=== PATIENT | female | born 1990 | race Caucasian/White ===

== ENCOUNTER 2016-04-14 06:45 | Inpatient (IN) | payer OTHER ==
[~2016-04-14] VITALS: Ht 160 cm; Wt 95.4 kg
[~2016-04-14 06:45] MED LIST: PRENAT PO
[2016-04-14] MEDS ORDERED: LACTATED RINGER'S 1,000 ML IV PRN (07:30)
[2016-04-14] MEDS ORDERED: BUTORPHANOL 2 MG INJ IV PRN (07:30)
[2016-04-14] MEDS ORDERED: OXYTOCIN 30 UNITS/LR 500 ML IV SCH ×3 (07:30)
[2016-04-14] MEDS ORDERED: OXYTOCIN 30 UNITS/LR 500 ML IV PRN ×2 (07:30→21:00)
[2016-04-14] MEDS ORDERED: METHYLERGONOVINE 0.2 MG INJ IM PRN ×2 (07:30→21:00)
[2016-04-14] MEDS ORDERED: MISOPROSTOL 200 MCG TAB PR PRN ×2 (07:30→21:00)
[2016-04-14] MEDS ORDERED: CARBOPROST 250 MCG INJ IM PRN ×2 (07:30→21:00)
[2016-04-14] MEDS ORDERED: LIDOCAINE 1% (MPF) 30 ML INJ INJ PRN (07:30)
[2016-04-14 07:52] VITALS: BP 118/79; PULSE 76; RESP 18
--- NOTE | 2016-04-14 08:16 | RADRPT ---
PROCEDURE: US OB. CLINICAL INDICATION: Size and dates TECHNIQUE: Multiple sonographic images of the pelvis and gravid uterus were obtained. The images were reviewed on a PACS workstation. COMPARISON: 12/27/2015 FINDINGS: There is a single viable intrauterine gestation. Cardiac activity is present with 137 beats per min [place]. There is a vertex presentation. The placenta is posterior. There is no evidence for an abruption or placenta previa. Measurements were made in order to determine age. The results are as follows: BPD =9.3 cm HC =33.5 cm AC =34.2 cm FL =7.1 cm Estimated gestational age of approximately 37 weeks and 4 days based on ultrasound measurements. Clinical age: 39 weeks and 5 days. The estimated date of delivery is 05/01/16, based on ultrasound measurements. The EFW = 3260 g, 24.8%, based on LMP age. RPTAT: AA IMPRESSION: Single viable intrauterine gestation of approximately 37 weeks and 4 days based on ultrasound measu rements. .Harvey Davis MD, Date Time Electronically viewed and signed by .Harvey Davis MD, on 04/14/2016 08:16 .S/
[2016-04-14] MEDS: LACTATED RINGER'S 1,000 ML IV SCH ×2 (10:49→18:55)
[2016-04-14 11:07] LABS: BASOPHILS % 0.2 % (0.0-2.0); EOSINOPHILS # 0.1 10^3/ul (0.0-0.5); EOSINOPHILS % 1.5 % (0.0-7.0); HEMATOCRIT 39.4 % (37.0-47.0); HEMOGLOBIN 13.4 g/dl (12.0-16.0); LYMPHOCYTES # 1.8 10^3/ul (0.8-2.9); LYMPHOCYTES % 20.1 % (15.0-51.0); MEAN CORPUSCULAR HGB CONC 34.1 g/dl (32.0-37.0); MEAN CORPUSCULAR VOLUME 93.9 fl (82.0-101.0); MONOCYTE # 0.7 10^3/ul (0.3-0.9); MONOCYTES % 7.7 % (0.0-11.0); NEUTROPHIL # 6.2 10^3/ul (1.6-7.5); NEUTROPHILS % 70.5 % (39.0-77.0); PLATELET COUNT 189 10^3/UL (140-440); RED BLOOD COUNT 4.19 10^6/ul (4.20-5.40); RED CELL DISTRIBUTION WIDTH 13.7 % (11.5-14.5); UNCORRECTED WBC 8.8 10^3/ul (4.8-10.8); WHITE BLOOD COUNT 8.8 10^3/ul (4.8-10.8)
[2016-04-14 11:11] LABS: CONDITION 1
[2016-04-14 11:18] LABS: INR 0.89; PT RATIO 0.9
[2016-04-14 11:19] LABS: PARTIAL THROMBOPLASTIN TIME 27.8 Sec (25.0-35.0)
--- NOTE | 2016-04-14 16:43 | HP ---
Date/Time of Note Date/Time of Note DATE: 04/14/16 TIME: 16:42 OB - History Hx of Present Free Text/Dictation AT 39 WKS W/ SROM Care: Good Care Ultrasounds: Normal mid trimester US Obstetrical Complications: None Medical Complications: None Past Family/Social History * Past Medical, Surgical, Family and Obstetric Histories reviewed from chart. OB Admission Exam Vital Signs Vital Signs Vital Signs Date Time Temp Pulse Resp B/P Pulse Ox O2 Delivery O2 Flow Rate FiO2 04/14/16 07:52 98.1 76 18 118/79 Room Air Physical Exam HEENT: WNL Heart: Rhythm Normal Lungs: Clear, Equal Abdomen: WNL Extremities: Normal Reflexes: Normal Cervical Dilatation: 1cm Effacement: 0% Station: Ballotable Membranes: Ruptured Amniotic Fluid: Clear Heart Rate: 130's Accelerations: Accelerations Present Decelerations: No Decelerations Last 72 hours Lab Results CBC & BMP 04/14/16 10:45 OB Assessment/Plan Reason for admission: rupture of membranes Plan: Induction Induction Method: per Pitocin Protocol JAYLIN DAVIS MD Apr 14, 2016 16:43
[2016-04-14] MEDS ORDERED: AMPICILLIN 2 GM/NS (PMX) 100 ML IV ONE (17:00)
[2016-04-14] MEDS ORDERED: AMPICILLIN 2 GM/NS (PMX) 100 ML ONE (17:06)
--- NOTE | 2016-04-14 20:32 | LDN ---
Date/Time of Note Date/Time of Note DATE: 04/14/16 TIME: 20:20 Delivery Summary of a viable baby boy weighing 3430 grams or 7# 9oz, 20" long, and with Apgars of 9/9. Placenta Delivered: Spontaneously Meconium: none Perineum intact?: No Perineal laceration: 2 Perineal laceration repair: Second degree perineal laceration and multiple bilateral vaginal and labial laceration all repaired with 2-0 chromic. Anesthesia type: Local Estimated blood loss: 250 Sponge & Needle done & correct: Yes All needle counts correct: Yes Any foreign bodies felt in the: No (vagina) Problems: Infant Delivery Information Sex Infant Sex: male Apgars 1 Minute: 9 5 Minute: 9 Suctioning Nose & mouth suctioned at berto: No Delee suction performed: No Umbilical Cord Umbilical cord with: 3 Vessels Cord presentations: no nuchal cord Cord Blood was obtained: Yes Mother & Baby Disposition Disposition Mom & Baby to Maternity; Good: Yes Baby to NICU: No JORDAN SOLIS MD Apr 14, 2016 20:30
--- NOTE | 2016-04-14 20:34 | DELSUM ---
Delivery Summary A-C Datetime Report Generated by CPN: 04/14/2016 20:33 DELIVERY PERSONNEL Echocardiograph Technician: Castillo, Akila MATERNAL INFORMATION Delivery Anesthesia: Local Medications in Delivery: 500 ML 30 UNIT PITOCIN Estimated Blood Loss (ml): 250 Placenta Cultured: No Maternal Complications: PROM LABOR SUMMARY EDC: 04/17/2016 00:00 No. Babies in Womb: 1 Attempted: No Labor Anesthesia: None LABOR INFORMATION Reason for Induction: PROM Onset of Labor: 04/14/2016 12:11 Complete Dilatation: 04/14/2016 19:06 Oxytocin: Induction Group B Beta Strep: Negative Group B Beta Strep: Not Done Antibiotics # of Doses: 1 Antibiotics Time of Last Dose: 1510 Steroids Given: None Reason Steroids Not Administered: Not Applicable MEMBRANES Membranes Rupture Method: Spontaneous Rupture of Membranes: 04/14/2016 04:58 Amniotic Fluid Color: Clear Amniotic Fluid Amount: Moderate (Annotations: PER PT) Amniotic Fluid Odor: None VAGINAL DELIVERY Episiotomy: None Laceration Extension: Second Degree Laceration Type: Perineal Laceration Repair: Yes Initial Vag Sponge Count: 20 Final Vag Sponge Count: 20 Initial Vag Sharps Count: 1 Final Vag Sharps Count: 4 Sponge Count Correct: Yes Sharps Count Correct: Yes BABY A INFORMATION Delivery Date/Time: 04/14/2016 19:34 Method of Delivery: Vaginal Born in Route : No : N/A Forceps: N/A Vacuum Extraction: N/A Shoulder Dystocia : N/A SHOULDER DYSTOCIA BABY A Infant Delivery Date/Time: 04/14/2016 19:34 PRESENTATION/POSITION BABY A Presentation: Cephalic Presentation: Cephalic Presentation: Cephalic Cephalic Presentation: Vertex Breech Presentation: N/A PLACENTA INFORMATION BABY A Placenta Delivery Time : 04/14/2016 19:42 Placenta Method of Delivery: Spontaneous Placenta Status: Delivered SCORES BABY A Heart Rate 1 min: >100 bpm Resp Effort 1 min: Good Cry Reflex Irritability 1 min: Cough/Sneeze/Pulls Away Muscle Tone 1 min: Active Motion Color 1 min: Body Declo, Extremit Blue Resuscitation Effort 1 min: Tactile Stimulation Heart Rate 5 min: >100 bpm Resp Effort 5 min: Good Cry Reflex Irritability 5 min: Cough/Sneeze/Pulls Away Muscle Tone 5 min: Active Motion Color 5 min: Body Declo, Extremit Blue Resuscitation Effort 5 min: Tactile Stimulation INFANT INFORMATION BABY A Gestational Age at Delivery: 39.4 Outcome : Liveborn Condition : Stable Sex: Male IDENTIFICATION/MEDS BABY A ID Band Number: [id number] ID Band Location: Right Leg; Left Arm Sensor Applied: Yes Sensor Number: [id number] Sensor Location : Cord Clamp Vitamin K Given : Not Given Erythromycin Given: Not Given WEIGHT/LENGTH BABY A Infant Birthweight (gm): 3430 Infant Length (in): 20.00 CORD INFORMATION BABY A No. Cord Vessels: 3 Nuchal Cord : N/A Cord Blood Taken: Yes Infant Suction: Mouth; Nose ASSESSMENT BABY A Complications: None Physical Findings at Delivery: Within Normal Limits Infant Respirations: Appears Normal Terminal Manager/ALS Called : No Infant Care By: Vini HERNANDEZ Transferred To: Remains with Mother
[2016-04-14] MEDS: LACTATED RINGER'S 1,000 ML IV* SCH (20:48)
[2016-04-14] MEDS ORDERED: AMPICILLIN 1 GM/NS (PMX) 50 ML IV SCH (21:00)
[2016-04-14] MEDS ORDERED: WITCH HAZEL/GLYCERIN PAD PR PRN (21:00)
[2016-04-14] MEDS ORDERED: BENZOCAINE 20% 56 ML SPRAY TOP PRN (21:00)
[2016-04-14] MEDS ORDERED: LANOLIN 7 GM TUBE TOP PRN (21:00)
[2016-04-14] MEDS: IBUPROFEN 600 MG TAB PO SCH (21:02)
[2016-04-14 22:30] VITALS: BP 132/74; PULSE 91; RESP 20
[2016-04-15] MEDS: IBUPROFEN 600 MG TAB PO SCH ×4 (03:06→21:06)
[2016-04-15] MEDS: LACTATED RINGER'S 1,000 ML IV* SCH ×3 (04:32→20:32)
[2016-04-15 04:47] VITALS: BP 128/65; PULSE 75; RESP 20
[2016-04-15 07:35] VITALS: BP 116/70; PULSE 83; RESP 16
[2016-04-15 07:44] LABS: BASOPHILS % 0.2 % (0.0-2.0); EOSINOPHILS % 0.2 % (0.0-7.0); HEMATOCRIT 32.5 % (37.0-47.0); HEMOGLOBIN 11.3 g/dl (12.0-16.0); LYMPHOCYTES # 2.2 10^3/ul (0.8-2.9); LYMPHOCYTES % 16.9 % (15.0-51.0); MEAN CORPUSCULAR HEMOGLOBIN 32.8 pg (29.0-33.0); MEAN CORPUSCULAR HGB CONC 34.7 g/dl (32.0-37.0); MEAN CORPUSCULAR VOLUME 94.6 fl (82.0-101.0); MEAN PLATELET VOLUME 8.6 fl (7.4-10.4); MONOCYTE # 1.1 10^3/ul (0.3-0.9); MONOCYTES % 8.6 % (0.0-11.0); NEUTROPHIL # 9.4 10^3/ul (1.6-7.5); NEUTROPHILS % 74.1 % (39.0-77.0); PLATELET COUNT 179 10^3/UL (140-440); RED BLOOD COUNT 3.44 10^6/ul (4.20-5.40); RED CELL DISTRIBUTION WIDTH 13.9 % (11.5-14.5); UNCORRECTED WBC 12.7 10^3/ul (4.8-10.8); WHITE BLOOD COUNT 12.7 10^3/ul (4.8-10.8)
[2016-04-15 07:51] LABS: CONDITION 1
[2016-04-15 11:55] VITALS: BP 121/64; PULSE 98; RESP 16
--- NOTE | 2016-04-15 15:17 | PN ---
Date/Time of Note Date/Time of Note DATE: 04/15/16 TIME: 15:14 OB Subjective Subjective Subjective Denies any complaint. Vaginal bleeding in the amount of menses. Ambulating. Breast-feeding. Denies any depressive symptoms. Denies any leg pain. Denies any fever or chills. OB Objective Objective Objective General appearance: Alert and oriented 4 he is not in any acute distress. Abdomen: Soft, fundal height at the level of umbilicus. No fundal tenderness. No abdominal tenderness. No rebound tenderness no guarding no rigidity. Breasts: No evidence of breast engorgement, mastitis or fissure. Extremities: No calf tenderness no click 1+ bilateral symmetric edema. No cords palpable, negative Homans sign. Hematology - 72 Hrs Test 04/14/16 10:45 04/15/16 07:30 Basophils # 0.010^3/ul (0.0-0.1) 0.010^3/ul (0.0-0.1) Basophils % 0.2% (0.0-2.0) 0.2% (0.0-2.0) Eosinophils # 0.110^3/ul (0.0-0.5) 0.010^3/ul (0.0-0.5) Eosinophils % 1.5% (0.0-7.0) 0.2% (0.0-7.0) Hematocrit 39.4% (37.0-47.0) 32.5% (37.0-47.0) L Hemoglobin 13.4g/dl (12.0-16.0) 11.3g/dl (12.0-16.0) L Lymphocytes # 1.810^3/ul (0.8-2.9) 2.210^3/ul (0.8-2.9) Lymphocytes % 20.1% (15.0-51.0) 16.9% (15.0-51.0) Mean Corpuscular Hemoglobin 32.0pg (29.0-33.0) 32.8pg (29.0-33.0) Mean Corpuscular Hemoglobin Concent 34.1g/dl (32.0-37.0) 34.7g/dl (32.0-37.0) Mean Corpuscular Volume 93.9fl (82.0-101.0) 94.6fl (82.0-101.0) Mean Platelet Volume 9.0fl (7.4-10.4) 8.6fl (7.4-10.4) Monocytes # 0.710^3/ul (0.3-0.9) 1.110^3/ul (0.3-0.9) H Monocytes % 7.7% (0.0-11.0) 8.6% (0.0-11.0) Neutrophils # 6.210^3/ul (1.6-7.5) 9.410^3/ul (1.6-7.5) H Neutrophils % 70.5% (39.0-77.0) 74.1% (39.0-77.0) Nucleated Red Blood Cells # 0.010^3/ul (0.0-0.0) 0.010^3/ul (0.0-0.0) Nucleated Red Blood Cells % 0.0/100WBC (0.0-0.0) 0.0/100WBC (0.0-0.0) Platelet Count 21416^3/UL (140-440) 78956^3/UL (140-440) Red Blood Count 4.1910^6/ul (4.20-5.40) L 3.4410^6/ul (4.20-5.40) L Red Cell Distribution Width 13.7% (11.5-14.5) 13.9% (11.5-14.5) White Blood Count 8.810^3/ul (4.8-10.8) 12.710^3/ul (4.8-10.8) #H OB Assessment/Plan Other Assessment: Status post , day #1 Status post SROM, mild leukocytosis, related to status. no evidence of endometritis or chorioamnionitis prior to delivery Mild anemia. . Doing well. Normal Plan: Expectant Management Other plan: Routine care Anticipate DC home tomorrow CHITO MELTON MD Apr 15, 2016 15:17
[2016-04-15 15:45] VITALS: BP 119/73; PULSE 87; RESP 18
[2016-04-15 20:30] VITALS: BP 110/75; PULSE 87; RESP 18
[2016-04-16] MEDS: IBUPROFEN 600 MG TAB PO SCH ×3 (03:06→18:30)
[2016-04-16] MEDS: LACTATED RINGER'S 1,000 ML IV* SCH (03:54)
[2016-04-16 04:00] VITALS: BP 100/59; PULSE 73; RESP 18
[2016-04-16 08:55] VITALS: BP 106/61; PULSE 85; RESP 18
[2016-04-16] MEDS ORDERED: DIPHTH/TET/ACEL PERTUSS (ADULT) 0.5 ML VIAL IM* ONE (09:00)
[2016-04-16 16:09] VITALS: BP 109/69; PULSE 95; RESP 18
[2016-04-16 20:00] VITALS: BP 110/72; PULSE 92; RESP 18
== END 2016-04-16 22:40 | disposition home or self-care (01) | DRG 775 ==
LOC: L-D 06:45 → OBT 06:45 → L-D 07:04 → OBT 07:04 → L-D 13:23 → PP1 22:13
PROVIDERS: ADMIT Obstetrics & Gynecology; ATTEND Obstetrics & Gynecology
PROC: 10E0XZZ Delivery of Products of Conception, External Approach (ICD-10-PCS; principal; 2016-04-14)
PROC: 0KQM0ZZ Repair Perineum Muscle, Open Approach (ICD-10-PCS; 2016-04-14)
DX: O70.1 Second degree perineal laceration during delivery (principal); Z37.0 Single live birth; O99.13 Other diseases of the blood and blood-forming organs and certain disorders involving the immune mechanism complicating the puerperium; O90.81 Anemia of the puerperium; D72.829 Elevated white blood cell count, unspecified; Z3A.39 39 weeks gestation of pregnancy
CPT/HCPCS: 76815; 85025; 85610; 85730; 86592; 86900; 86901; 87340; 90715; A4310; G0463; J0290; J2590; J7120

== ENCOUNTER 2016-11-25 11:40 | Emergency (ER) | payer OTHER ==
[~2016-11-25] VITALS: Ht 160 cm; Wt 89.5 kg
[2016-11-25 11:47] VITALS: Ht 160 cm; Wt 89.5 kg
[2016-11-25] MEDS ORDERED: ACETAMINOPHEN 325 MG TAB PO ONE (13:00)
[2016-11-25 13:26] LABS: BASOPHILS % 0.4 % (0.0-2.0); EOSINOPHILS # 0.1 10^3/ul (0.0-0.5); EOSINOPHILS % 0.8 % (0.0-7.0); HEMATOCRIT 39.5 % (37.0-47.0); HEMOGLOBIN 13.4 g/dl (12.0-16.0); LYMPHOCYTES # 2.3 10^3/ul (0.8-2.9); LYMPHOCYTES % 31.3 % (15.0-51.0); MEAN CORPUSCULAR HEMOGLOBIN 29.5 pg (29.0-33.0); MEAN CORPUSCULAR HGB CONC 33.9 g/dl (32.0-37.0); MEAN PLATELET VOLUME 10.3 fl (7.4-10.4); MONOCYTE # 0.4 10^3/ul (0.3-0.9); MONOCYTES % 6.1 % (0.0-11.0); NEUTROPHIL # 4.4 10^3/ul (1.6-7.5); PLATELET COUNT 276 10^3/UL (140-415); RED BLOOD COUNT 4.54 10^6/ul (4.20-5.40); RED CELL DISTRIBUTION WIDTH 12.7 % (11.5-14.5); WHITE BLOOD COUNT 7.3 10^3/ul (4.8-10.8)
[2016-11-25 13:49] LABS: INR 0.95; PROTIME 12.7 Sec (12.2-14.2)
[2016-11-25 13:50] LABS: PARTIAL THROMBOPLASTIN TIME 28.8 Sec (25.0-35.0)
[2016-11-25 13:50] LABS: ADD UMIC NO; UR ASCORBIC ACID NEGATIVE (NEGATIVE); UR BILIRUBIN (Dip) NEGATIVE (NEGATIVE); UR BLOOD (Dip) NEGATIVE (NEGATIVE); UR CLARITY CLEAR (CLEAR); UR COLOR YELLOW (YELLOW); UR GLUCOSE (Dip) NEGATIVE (NEGATIVE); UR KETONES (Dip) NEGATIVE (NEGATIVE); UR LEUKOCYTE ESTERASE (Dip) NEGATIVE Leu/ul (NEGATIVE); UR NITRITE (Dip) NEGATIVE (NEGATIVE); UR SPECIFIC GRAVITY (Dip) 1.026 (1.003-1.030); UR TOTAL PROTEIN (Dip) NEGATIVE (NEGATIVE); UR UROBILINOGEN (Dip) NEGATIVE (NEGATIVE)
[2016-11-25 13:52] LABS: ALBUMIN 4.6 g/dl (3.3-4.9); ALBUMIN/GLOBULIN RATIO 1.35; BILIRUBIN,INDIRECT 0.3 mg/dl (0-1.1); BILIRUBIN,TOTAL 0.3 mg/dl (0.2-1.3); CALCIUM 9.4 mg/dl (8.4-10.2); CREATININE 0.57 mg/dl (0.44-1.00); POTASSIUM 3.7 mmol/L (3.5-5.1)
--- NOTE | 2016-11-25 14:55 | RADRPT ---
PROCEDURE: CT Abdomen and Pelvis without contrast. CLINICAL INDICATION: Abdominal pain. TECHNIQUE: CT scan of the abdomen and pelvis without contrast was performed on a multidetector hig h-resolution CT scanner. The patient was scanned without intravenous contrast. Coronal and sagittal reformatted images were obtained from the axial source images. Images were reviewed on a high-resol [employer] PACS workstation. The total exam CTDI equals 20.4 mGy and the total exam DLP equals 1100.34 mG y-cm. One or the following dose reduction techniques were used: -Automated exposure control. -Adjustment of the mA and/or KV according to patient's size. -Use of iterative reconstruction technique. COMPARISON: None. FINDINGS: Lung Bases: Unremarkable. GI:. Unremarkable. Liver: There is a slight decrease in the overall attenuation of the liver suggesting very mild diffu se steatosis. Gallbladder: There is cholelithiasis without evidence of biliary tree dilatation. Pancreas: Unremarkable. Spleen: Unremarkablel Adrenals: Unremarkable. Kidneys: There is no evidence of urolithiasis or obstructive uropathy. Bladder: Unremarkable. Pelvic Organs: Unremarkable. Skeleton: Normal for age. Other: Shoddy bilateral inguinal lymph nodes. IMPRESSION: 1. Small ovoid fat density mass with surrounding stranding in the adjacent fat in the region of the sigmoid colon. This is suggestive of epiploic appendagitis. 2. Cholelithiasis without evidence of biliary tree dilatation. 3. Very subtle decrease in the overall attenuation of the liver suggesting mild hepatic steatosis. 4. Multiple small calcified sub hepatic lymph nodes. This is suggestive of an old inflammatory proc ess such as old healed granulomatous residua. 5. Normal-appearing vermiform appendix visualized. 6. No evidence of urolithiasis or obstructive uropathy. Note: A call report was made to Nickolas Oscar on 11/25/2016 2:48:05 PM. RPTAT: AACC Physician Antwon Date Time Electronically viewed and signed by Physician Antwon on 11/25/2016 14:53 /
[2016-11-25] MEDS ORDERED: RANI150T9 PO (15:17)
[2016-11-25] MEDS ORDERED: IBUP-1542 PO (15:17)
[2016-11-25 15:39] VITALS: BP 117/75; PULSE 72; RESP 16; TEMP 98.7
--- NOTE | 2016-11-27 04:07 | ERD ---
ER Documentation Chief Complaint Date/Time DATE: 11/27/16 TIME: 04:04 Chief Complaint abdominal pain x 4 days HPI This patient is a 26-year-old female presenting to the emergency department with complaints of right upper quadrant pain worse with walking, intermittently for the past 4 days. Associated symptoms include decreased appetite. The patient denies past abdominal surgeries, nausea, urinary symptoms, but she does state that she had some mild diarrhea. She believes her last menstrual cycle was approximately 8 days ago. She denies other symptoms currently. ROS All systems reviewed and are negative except as per history of present illness. Medications Home Meds Active Scripts Ranitidine Hcl* (Zantac*) 150 Mg Tablet, 150 MG PO BID Y for EPIGASTRIC PAIN, # 30 TAB Prov:NICKOLAS PISANO PA-C 11/25/16 Ibuprofen* (Motrin*) 600 Mg Tab, 600 MG PO Q6, #30 TAB Prov:NICKOLAS PISANO PA-C 11/25/16 Allergies Allergies: Coded Allergies: hydrocodone (Verified Allergy, Mild, NAUSEA, 04/14/16) PT. STATES SHE FEELS 'BAD' ON THE MED. SEVERE NAUSEA tramadol (Verified Allergy, Mild, NAUSEA, 04/14/16) PMhx/Soc Medical and Surgical Hx: pt denies Medical Hx, pt denies Surgical Hx Hx Miscellaneous Medical Probl: Yes (FOOT PAIN UNK ORIGIN ) Hx Alcohol Use: No Hx Substance Use: No Hx Tobacco Use: No Smoking Status: Never smoker Physical Exam Vitals Vital Signs Date Time Temp Pulse Resp B/P Pulse Ox O2 Delivery O2 Flow Rate FiO2 11/25/16 15:39 98.7 72 16 117/75 99 Room Air 11/25/16 11:47 98.2 93 18 129/63 98 Physical Exam Const: Obese female resting in no acute distress. Head: Atraumatic Eyes: Normal Conjunctiva ENT: Normal External Ears, Nose and Mouth. Neck: Full range of motion..~ No meningismus. Resp: Clear to auscultation bilaterally Cardio: Regular rate and rhythm, no murmurs Abd: Soft, no tenderness to palpation of the right upper quadrant, no rebound tenderness or guarding, no McBurney's point tenderness, non distended. Normal bowel sounds Skin: No petechiae or rashes Back: No midline or flank tenderness Ext: No cyanosis, or edema Neur: Awake and alert Psych: Normal Mood and Affect Result Diagram: 11/25/16 1300 11/25/16 1300 Results 24 hrs Laboratory Tests Test 11/25/16 12:30 11/25/16 13:00 Urine Color YELLOW Urine Clarity CLEAR Urine pH 5.0 Urine Specific [place] 1.026 Urine Ketones NEGATIVEmg/dL Urine Nitrite NEGATIVEmg/dL Urine Bilirubin NEGATIVEmg/dL Urine Urobilinogen NEGATIVEmg/dL Urine Leukocyte Esterase NEGATIVELeu/ul Urine Hemoglobin NEGATIVEmg/dL Urine Glucose NEGATIVEmg/dL Urine Total Protein NEGATIVEmg/dl White Blood Count 7.310^3/ul Red Blood Count 4.5410^6/ul Hemoglobin 13.4g/dl Hematocrit 39.5% Mean Corpuscular Volume 87.0fl Mean Corpuscular Hemoglobin 29.5pg Mean Corpuscular Hemoglobin Concent 33.9g/dl Red Cell Distribution Width 12.7% Platelet Count 10061^3/UL Mean Platelet Volume 10.3fl Neutrophils % 61.0% Lymphocytes % 31.3% Monocytes % 6.1% Eosinophils % 0.8% Basophils % 0.4% Nucleated Red Blood Cells % 0.0/100WBC Neutrophils # 4.410^3/ul Lymphocytes # 2.310^3/ul Monocytes # 0.410^3/ul Eosinophils # 0.110^3/ul Basophils # 0.010^3/ul Nucleated Red Blood Cells # 0.010^3/ul Prothrombin Time 12.7Sec Prothrombin Time Ratio 1.0 INR International Normalized Ratio 0.95 Activated Partial Thromboplast Time 28.8Sec Sodium Level 141mmol/L Potassium Level 3.7mmol/L Chloride Level 108mmol/L Carbon Dioxide Level 22mmol/L Anion Gap 15 Blood Urea Nitrogen 11mg/dl Creatinine 0.57mg/dl Glucose Level 90mg/dl Calcium Level 9.4mg/dl Total Bilirubin 0.3mg/dl Direct Bilirubin 0.00mg/dl Indirect Bilirubin 0.3mg/dl Aspartate Amino Transf (AST/SGOT) 17IU/L Alanine Aminotransferase (ALT/SGPT) 26IU/L Alkaline Phosphatase 107IU/L Total Protein 8.0g/dl Albumin 4.6g/dl Globulin 3.40g/dl Albumin/Globulin Ratio 1.35 Lipase 69U/L Current Medications Medications (Trade) Dose Ordered Sig/Vamshi Route PRN Reason Start Time Stop Time Status Last Admin Dose Admin Acetaminophen (Tylenol Tab) 650 mg ONCE ONCE PO 11/25/16 13:00 11/25/16 13:02 DC 11/25/16 13:29 Procedures/MDM This patient is a 26-year-old female presenting to the emergency department with complaints of right upper quadrant pain. The patient is breast-feeding and declined pain medication in the department. CBC showed no signs of leukocytosis or anemia. Urinalysis showed no sign of infection or proteinuria. CT abdomen and pelvis without contrast did show epiploic appendage otitis, however no other significant acute abnormalities were noted. Was cholelithiasis which may be causing intermittent pain. No other life- threatening pathology or acute surgical abdomen findings were present. She was stable for discharge with a diagnosis of abdominal pain of unclear etiology. Given a prescription for the Profen. She is to have close follow-up with her primary care physician within 1-2 days. She is to return immediately for any new or worsening symptoms. PROCEDURE: CT Abdomen and Pelvis without contrast. CLINICAL INDICATION: Abdominal pain. TECHNIQUE: CT scan of the abdomen and pelvis without contrast was performed on a multidetector high-resolution CT scanner. The patient was scanned without intravenous contrast. Coronal and sagittal reformatted images were obtained from the axial source images. Images were reviewed on a high-resolution PACS workstation. The total exam CTDI equals 20.4 mGy and the total exam DLP equals 1100.34 mGy-cm. One or the following dose reduction techniques were used: -Automated exposure control. -Adjustment of the mA and/or KV according to patient's size. -Use of iterative reconstruction technique. COMPARISON: None. FINDINGS: Lung Bases: Unremarkable. GI:. Unremarkable. Liver: There is a slight decrease in the overall attenuation of the liver suggesting very mild diffuse steatosis. Gallbladder: There is cholelithiasis without evidence of biliary tree dilatation. Pancreas: Unremarkable. Spleen: Unremarkablel Adrenals: Unremarkable. Kidneys: There is no evidence of urolithiasis or obstructive uropathy. Bladder: Unremarkable. Pelvic Organs: Unremarkable. Skeleton: Normal for age. Other: Shoddy bilateral inguinal lymph nodes. IMPRESSION: 1. Small ovoid fat density mass with surrounding stranding in the adjacent fat in the region of the sigmoid colon. This is suggestive of epiploic appendagitis. 2. Cholelithiasis without evidence of biliary tree dilatation. 3. Very subtle decrease in the overall attenuation of the liver suggesting mild hepatic steatosis. 4. Multiple small calcified sub hepatic lymph nodes. This is suggestive of an old inflammatory process such as old healed granulomatous residua. 5. Normal-appearing vermiform appendix visualized. 6. No evidence of urolithiasis or obstructive uropathy. Note: A call report was made to Nickolas Oscar on 11/25/2016 2:48: 05 PM. RPTAT: AACC Physician Antwon Date Time Electronically viewed and signed by Sacha Clark Physician on 11/25/2016 14: 53 Departure Diagnosis: Primary Impression: Abdominal pain Abdominal location: unspecified location Qualified Code: R10.9 - Abdominal pain, unspecified abdominal location Condition: Fair Patient Instructions: Abdominal Pain, Unknown Cause, (Female), Gerd (Adult) Referrals: JOSE DE JESUS ABARCA (PCP) Additional Instructions: Follow up with your PCP within the next 1-3 days for a repeat evaluation. If you require a referral to a specialist, your Primary Care Provider may be able to provide this for you. In most patient cases, a referral is not required. If you have further questions regarding this matter, please ask your Primary Care Provider. Return the the emergency department immediately if symptoms worsen or change. If you have any questions regarding medications, ask your pharmacist or us before you leave. If any adverse reactions, occur while taking your medications, discontinue the treatment and return to the emergency department immediately. If any new or worsening symptoms, uncontrolled fevers, or other unexplained symptoms occur, return to the emergency department immediately. Take your medications as directed, and complete the entire course of treatment. NICKOLAS PISANO PA-C Nov 27, 2016 04:07
== END 2016-11-25 15:41 | disposition home or self-care (01) ==
LOC: FTE 11:40
DX: R10.11 Right upper quadrant pain (principal)
CPT/HCPCS: 74176; 80053; 81003; 83690; 85025; 85610; 85730; Z7502; Z7610

== ENCOUNTER 2017-06-23 12:33 | Emergency (ER) | END 2017-06-23 15:24 | disposition home or self-care (01) ==

== ENCOUNTER 2017-12-16 00:03 | Emergency (ER) | END 2017-12-16 04:55 | disposition home or self-care (01) ==

== ENCOUNTER 2018-03-10 09:33 | Emergency (ER) | payer OTHER ==
[~2018-03-10] VITALS: Ht 160 cm; Wt 96.8 kg
[~2018-03-10 09:33] MED LIST changes: +IBUP-1542 PO; +ONDA4TAB14 PO; -PRENAT PO
[2018-03-10 09:37] VITALS: BP 135/95; PULSE 107; RESP 19; Ht 160 cm; Wt 96.8 kg
[2018-03-10] MEDS ORDERED: AMOX500C2 PO (11:31)
[2018-03-10] MEDS ORDERED: CARB15DR50 BOTH EARS (11:42)
[2018-03-10] MEDS ORDERED: ERYT1OIN6 RIGHT EYE (11:44)
--- NOTE | 2018-03-10 13:51 | ERD ---
ER Documentation Chief Complaint Chief Complaint left ear pain x 3 days HPI 27-year-old female presents emergency department complaining of left ear pain for the past 3 days. Patient states that she has lymph node underneath her left ear that is painful. She rates it mild in severity. Denies any fevers, denies any drainage. Denies any medications ROS All systems reviewed and are negative except as per history of present illness. Medications Home Meds Active Scripts Erythromycin Base (Erythromycin) 1 Gm Oint...g., 1 APPLIC RIGHT EYE QID for 7 Days Prov:ELIZABETH GRAMAJO PA-C 03/10/18 Carbamide Peroxide* (Debrox*) 6.5% - 15 Ml Drops, 10 DROP BOTH EARS BID for 3 Days, BOTTLE Prov:ELIZABETH GRAMAJO PA-C 03/10/18 Amoxicillin* (Amoxicillin*) 500 Mg Cap, 500 MG PO TID for 10 Days, CAP Prov:ELIZABETH GRAMAJO PA-C 03/10/18 Ondansetron (Ondansetron Odt) 4 Mg Tab.rapdis, 4 MG PO Q6H PRN for NAUSEA AND/OR VOMITING, #10 TAB Prov:DIANA SMALL MD 12/16/17 Ibuprofen* (Motrin*) 600 Mg Tab, 600 MG PO Q6H PRN for PAIN AND OR ELEVATED TEMP, #20 TAB Prov:DIANA SMALL MD 12/16/17 Allergies Allergies: Coded Allergies: hydrocodone (Verified Allergy, Mild, NAUSEA, 12/16/17) PT. STATES SHE FEELS 'BAD' ON THE MED. SEVERE NAUSEA tramadol (Verified Allergy, Mild, NAUSEA, 12/16/17) PMhx/Soc Medical and Surgical Hx: pt denies Medical Hx, pt denies Surgical Hx History of Surgery: No Anesthesia Reaction: No Hx Neurological Disorder: No Hx Respiratory Disorders: No Hx Cardiac Disorders: No Hx Psychiatric Problems: No Hx Miscellaneous Medical Probl: Yes (FOOT PAIN UNK ORIGIN ) Hx Alcohol Use: No Hx Substance Use: No Hx Tobacco Use: No Smoking Status: Never smoker Physical Exam Vitals Vital Signs Date Temp Pulse Resp B/P (MAP) Pulse Ox O2 O2 Flow FiO2 Time Delivery Rate 03/10/18 98.0 107 19 135/95 96 09:37 (108) Physical Exam Const: No acute distress Head: Atraumatic Eyes: Normal Conjunctiva ENT: Bilateral cerumen impaction, Nose and Mouth. Preauricular lymph node Neck: Full range of motion. No meningismus. Resp: Clear to auscultation bilaterally Cardio: Regular rate and rhythm, no murmurs Abd: Soft, non tender, non distended. Normal bowel sounds Skin: No petechiae or rashes Back: No midline or flank tenderness Ext: No cyanosis, or edema Neur: Awake and alert Psych: Normal Mood and Affect Procedures/MDM 27-year-old female presents emerged from complaining of left ear pain for the past 3 days, on examination patient has bilateral cerumen impaction with a small lymph node in the preauricular region. Patient will be treated for possible lymphadenitis with amoxicillin and given instructions to follow-up with her primary care physician. I have given a prescription for Debrox for the cerumen impaction to apply when she feels better. Return precautions were given she understands agrees this plan Departure Diagnosis: Primary Impression: Left ear pain Additional Impression: Lymphadenopathy Condition: Stable Patient Instructions: Lymphangitis Additional Instructions: FOLLOW UP WITH YOUR PRIMARY CARE PHYSICIAN TOMORROW.Return to this facility if you are not improving as expected. Take all medicines as directed. Return to this facility if you are not improving as expected. ELIZABETH GRAMAJO PA-C Mar 10, 2018 13:51
== END 2018-03-10 11:37 | disposition home or self-care (01) ==
LOC: FTE 09:33
DX: H92.02 Otalgia, left ear (principal); R59.1 Generalized enlarged lymph nodes
CPT/HCPCS: 99283

== ENCOUNTER 2018-08-21 08:21 | Emergency (ER) | payer OTHER ==
[~2018-08-21] VITALS: Ht 160 cm; Wt 9.0 kg
[~2018-08-21 08:21] MED LIST changes: +AMOX500C2 PO; +CARB15DR50 BOTH EARS; +ERYT1OIN6 RIGHT EYE
[2018-08-21 08:24] VITALS: BP 128/68; PULSE 88; RESP 18; Ht 160 cm; Wt 9.0 kg
[2018-08-21] MEDS ORDERED: CEPH-443 PO (10:58)
[2018-08-21] MEDS ORDERED: IBUP-1542 PO (10:58)
--- NOTE | 2018-08-21 11:02 | ERD ---
ER Documentation Chief Complaint Chief Complaint leg/calf pain/swelling x5 days "may be blood clot" HPI 28-year-old female presents to the ED with right calf pain x5 days. She reports that she has concerned that this may be a blood clot. She denies any history of blood clots previously and denies any family history of blood clots. She reports that her calf pain is pulsating and cramp like. She reports the pain 5 out of 10 intensity and states that it does not radiate anywhere. She states the pain is worse with activity and better with rest. She denies any shortness of breath or signs of breathing difficulties. She does report that she started control at the beginning of this month. She has not taken any medication for her calf pain. ROS All systems reviewed and are negative except as per history of present illness. Medications Home Meds Active Scripts Ibuprofen* (Motrin*) 600 Mg Tab, 600 MG PO Q6H PRN for PAIN AND OR ELEVATED TEMP, #30 TAB Prov:BRANDI GAYTAN PA-C 08/21/18 Cephalexin* (Keflex*) 500 Mg Capsule, 500 MG PO BID for 7 Days, CAP Prov:BRANDI GAYTAN PA-C 08/21/18 Erythromycin Base (Erythromycin) 1 Gm Oint...g., 1 APPLIC RIGHT EYE QID for 7 Days Prov:ELIZABETH GRAMAJO PA-C 03/10/18 Carbamide Peroxide* (Debrox*) 6.5% - 15 Ml Drops, 10 DROP BOTH EARS BID for 3 Days, BOTTLE Prov:ELIZABETH GRAMAJO PA-C 03/10/18 Amoxicillin* (Amoxicillin*) 500 Mg Cap, 500 MG PO TID for 10 Days, CAP Prov:EILZABETH GRAMAJO PA-C 03/10/18 Ondansetron (Ondansetron Odt) 4 Mg Tab.rapdis, 4 MG PO Q6H PRN for NAUSEA AND/OR VOMITING, #10 TAB Prov:DIANA SMALL MD 12/16/17 Ibuprofen* (Motrin*) 600 Mg Tab, 600 MG PO Q6H PRN for PAIN AND OR ELEVATED TEMP, #20 TAB Prov:DIANA SMALL MD 12/16/17 Allergies Allergies: Coded Allergies: hydrocodone (Verified Allergy, Mild, NAUSEA, 12/16/17) PT. STATES SHE FEELS 'BAD' ON THE MED. SEVERE NAUSEA tramadol (Verified Allergy, Mild, NAUSEA, 12/16/17) PMhx/Soc Medical and Surgical Hx: pt denies Medical Hx, pt denies Surgical Hx History of Surgery: No Anesthesia Reaction: No Hx Neurological Disorder: No Hx Respiratory Disorders: No Hx Cardiac Disorders: No Hx Psychiatric Problems: No Hx Miscellaneous Medical Probl: Yes (FOOT PAIN UNK ORIGIN ) Hx Alcohol Use: No Hx Substance Use: No Hx Tobacco Use: No Smoking Status: Never smoker FmHx Family History: No diabetes Physical Exam Vitals Vital Signs Date Temp Pulse Resp B/P (MAP) Pulse Ox O2 O2 Flow FiO2 Time Delivery Rate 08/21/18 99.1 88 18 128/68 99 08:24 (88) Physical Exam Const: No acute distress Head: Atraumatic Eyes: Normal Conjunctiva ENT: Normal External Ears, Nose and Mouth. Neck: Full range of motion. Resp: Clear to auscultation bilaterally Cardio: Regular rate and rhythm Abd: Soft, non tender, non distended. Skin: No petechiae or rashes Back: Slight tenderness to the right lower back Ext: Right calf: Tenderness on pressing up and down the calf. No significant swelling noted. No erythema. Negative Homans sign Neur: Awake and alert Psych: Normal Mood and Affect Results 24 hrs Laboratory Tests Test 08/21/18 10:04 08/21/18 10:13 POC Beta HCG, Qualitative NEGATIVE Bedside Urine pH (LAB) 6.0 Bedside Urine Protein (LAB) 2+ Bedside Urine Glucose (UA) Negative Bedside Urine Ketones (LAB) Negative Bedside Urine Blood 3+ Bedside Urine Nitrite (LAB) Negative Bedside Urine Leukocyte Esterase (L 1+ Procedures/MDM ED COURSE: The patient was stable throughout ED course. I kept the patient informed of laboratory and diagnostic imaging results throughout the ED course. DIAGNOSTIC IMAGING: Read by radiologist. PROCEDURE: US Lower extremity Venous. CLINICAL INDICATION: Right leg edema TECHNIQUE: Multiple sonographic images of the right lower extremity deep venous system was obtained utilizing grayscale, color-flow, compressive sono graphy and doppler imaging with augmentation. The images were reviewed on a PACS workstation. COMPARISON: None. FINDINGS: There is normal compressibility and flow within the right common femoral, femoral, calf and popliteal veins. IMPRESSION: No sonographic evidence for deep venous thrombosis. RPTAT: HMPE Physician Meron Date Time Electronically viewed and signed by Svetlana Gray Physician on 08/21/2018 10:44 Urinalysis done MEDICATIONS GIVEN: [None.] MEDICAL DECISION MAKING: Patient is a 28-year-old female complaining of right calf pain x1 week. She started her control earlier this month and has concerns about DVT. She has tenderness to her calf but no significant swelling or inflammation. Negative Homans sign. Ultrasound was done showing no signs of DVT. Urinalysis was also done showing a slight urinary tract infection. Patient was discharged with Keflex and told to follow-up with primary care provider for further care management. H&P with other data not c/w emergent process (eg. DVT, AAO, compartment syndrome, nec fasc). No signs of ischemia, neurovascular compromise, compartment syndrome, or septic joint, avascular necrosis, or osteomyelitis. Vital signs were reviewed. Patient is afebrile. Patient was not hypoxic. Patient was hemodynamically stable. PRESCRIPTION: Keflex, Motrin DISCHARGE: At this time, patient is stable for discharge and outpatient management. I have instructed the patient to follow-up with his/her primary care physician in 1-2 days. I have discussed with the patient the possibility of needing to see a specialist for further workup and imaging studies if symptoms persist. I have instructed the patient to promptly return to the ER for any new or worsening symptoms including increased pain, fever, nausea, vomiting, weakness or LOC. The patient and/or family expressed understanding of and agreement with this plan. All questions were answered. Home care instructions were provided. Disclaimer: Inadvertent spelling and grammatical errors are likely due to EHR/dictation software use and do not reflect on the overall quality of patient care. Also, please note that the electronic time recorded on this note does not necessarily reflect the actual time of the patient encounter. Departure Diagnosis: Primary Impression: Muscle cramp Additional Impression: UTI (urinary tract infection) Urinary tract infection type: acute cystitis Hematuria presence: without hematuria Qualified Codes: N30.00 - Acute cystitis without hematuria Condition: Fair Patient Instructions: Understanding Urinary Tract Infections (UTIs) Referrals: [facility] YOU HAVE RECEIVED A MEDICAL SCREENING EXAM AND THE RESULTS INDICATE THAT YOU DO NOT HAVE A CONDITION THAT REQUIRES URGENT TREATMENT IN THE EMERGENCY DEPARTMENT. FURTHER EVALUATION AND TREATMENT OF YOUR CONDITION CAN WAIT UNTIL YOU ARE SEEN IN YOUR DOCTORS OFFICE WITHIN THE NEXT 1-2 DAYS. IT IS YOUR RESPONSIBILITY TO MAKE AN APPOINTMENT FOR FOLOW-UP CARE. IF YOU HAVE A PRIMARY DOCTOR --you should call your primary doctor and schedule an appointment IF YOU DO NOT HAVE A PRIMARY DOCTOR YOU CAN CALL OUR PHYSICIAN REFERRAL HOTLINE AT IF YOU CAN NOT AFFORD TO SEE A PHYSICIAN YOU CAN CHOSE FROM THE FOLLOWING [facility] [address] [facility] [address] [facility] [facility] [address] [facility] [facility] [address] [facility] [address] [facility]. [facility] [address] [facility]. [facility] YOU HAVE RECEIVED A MEDICAL SCREENING EXAM AND THE RESULTS INDICATE THAT YOU DO NOT HAVE A CONDITION THAT REQUIRES URGENT TREATMENT IN THE EMERGENCY DEPARTMENT. FURTHER EVALUATION AND TREATMENT OF YOUR CONDITION CAN WAIT UNTIL YOU ARE SEEN IN YOUR DOCTORS OFFICE WITHIN THE NEXT 1-2 DAYS. IT IS YOUR RESPONSIBILITY TO MAKE AN APPOINTMENT FOR FOLOW-UP CARE. IF YOU HAVE A PRIMARY DOCTOR --you should call your primary doctor and schedule and appointment IF YOU DO NOT HAVE A PRIMARY DOCTOR YOU CAN CALL OUR PHYSICIAN REFERRAL HOTLINE AT . IF YOU CAN NOT AFFORD TO SEE A PHYSICIAN YOU CAN CHOSE FROM THE FOLLOWING [facility] INSTITUTIONS: [facility] [address] [place] [address] [facility] [address] [place] [address] [facility] [address] [place] [address] Additional Instructions: Call your primary care doctor TOMORROW for an appointment during the next 1-2 days.See the doctor sooner or return here if your condition worsens before your appointment time. BRANDI GAYTAN PA-C Aug 21, 2018 11:02
== END 2018-08-21 11:16 | disposition home or self-care (01) ==
LOC: FTE 08:21
DX: N30.00 Acute cystitis without hematuria (principal); R25.2 Cramp and spasm
CPT/HCPCS: 81003; 81025; 93971; Z7502

== ENCOUNTER 2018-10-10 03:03 | Emergency (ER) | payer OTHER ==
[~2018-10-10] VITALS: Ht 160 cm; Wt 98.0 kg
[~2018-10-10 03:03] MED LIST changes: +BACL10TA PO; +CEPH-443 PO
[2018-10-10 03:06] VITALS: Ht 160 cm; Wt 98.0 kg
[2018-10-10] MEDS ORDERED: IBUPROFEN 600 MG TAB PO ONE (03:30)
--- NOTE | 2018-10-10 04:24 | ERD ---
ER Documentation Chief Complaint Chief Complaint HIP PAIN, STATES "FELL OFF CHAIR 2WKS AGO" HPI Patient is a 28-year-old female who presents ER for concerns of right-sided hip pain and lower back pain after fall injury 1 week ago. Patient states she was seen in the beach chair when she fell backwards out of the beach chair. Patient states she is a time she had intermittent right-sided hip pain and lower back pain. Patient states the pain is localized to her right side and does occasionally radiate down her right leg. Patient denies any saddle anesthesia, urine incontinence or stool incontinence. Patient denies any fevers or chills. Patient has not taken any medications for symptoms. Patient is able to ambulate with minimal difficulty. Patient did not hit her head. ROS All systems reviewed and are negative except as per history of present illness. Medications Home Meds Active Scripts Baclofen* (Baclofen*) 10 Mg Tablet, 10 MG PO Q8, #15 TAB Prov:KAMILLA DOYLE PA-C 10/10/18 Ibuprofen* (Motrin*) 600 Mg Tab, 600 MG PO Q6, #30 TAB Prov:KAMILLA DOYLE PA-C 10/10/18 Ibuprofen* (Motrin*) 600 Mg Tab, 600 MG PO Q6H PRN for PAIN AND OR ELEVATED TEMP, #30 TAB Prov:BRANDI GAYTAN PA-C 08/21/18 Cephalexin* (Keflex*) 500 Mg Capsule, 500 MG PO BID for 7 Days, CAP Prov:BRANDI GAYTAN PA-C 08/21/18 Erythromycin Base (Erythromycin) 1 Gm Oint...g., 1 APPLIC RIGHT EYE QID for 7 Days Prov:ELIZABETH GRAMAJO PA-C 03/10/18 Carbamide Peroxide* (Debrox*) 6.5% - 15 Ml Drops, 10 DROP BOTH EARS BID for 3 Days, BOTTLE Prov:ELIZABETH GRAMAJO PA-C 03/10/18 Amoxicillin* (Amoxicillin*) 500 Mg Cap, 500 MG PO TID for 10 Days, CAP Prov:ELIZABETH GRAMAJO PA-C 03/10/18 Ondansetron (Ondansetron Odt) 4 Mg Tab.rapdis, 4 MG PO Q6H PRN for NAUSEA AND/OR VOMITING, #10 TAB Prov:SMALL,DIANA M MD 12/16/17 Ibuprofen* (Motrin*) 600 Mg Tab, 600 MG PO Q6H PRN for PAIN AND OR ELEVATED TEMP, #20 TAB Prov:DIANA SMALL MD 12/16/17 Allergies Allergies: Coded Allergies: hydrocodone (Verified Allergy, Mild, NAUSEA, 12/16/17) PT. STATES SHE FEELS 'BAD' ON THE MED. SEVERE NAUSEA tramadol (Verified Allergy, Mild, NAUSEA, 12/16/17) PMhx/Soc Medical and Surgical Hx: pt denies Medical Hx, pt denies Surgical Hx History of Surgery: No Anesthesia Reaction: No Hx Neurological Disorder: No Hx Respiratory Disorders: No Hx Cardiac Disorders: No Hx Psychiatric Problems: No Hx Miscellaneous Medical Probl: Yes (FOOT PAIN UNK ORIGIN ) Hx Alcohol Use: No Hx Substance Use: No Hx Tobacco Use: No Smoking Status: Never smoker FmHx Family History: No diabetes Physical Exam Vitals Vital Signs Date Temp Pulse Resp B/P (MAP) Pulse Ox O2 O2 Flow FiO2 Time Delivery Rate 10/10/18 99.1 80 19 112/83 99 03:06 (93) Physical Exam GENERAL: Well-developed, well-nourished female. Appears in no acute distress. HEAD: Normocephalic, atraumatic. EYES: Pupils are equally reactive bilaterally. EOMs grossly intact. No conjunctival erythema. ENT: Moist mucous membranes. No uvula deviation. No kissing tonsils. NECK: Supple. No meningismus. Normal range of motion of the neck. LUNG: Clear to auscultation bilaterally. No rhonchi, wheezing, rales or coarse breath sounds. HEART: Regular rate and rhythm. No murmurs, rubs or gallops BACK: No midline tenderness. Tender to palpation of the sacrum. Tender to palpation of the right lumbar paraspinal muscles. Positive straight leg raise on the right. EXTREMITIES: Equal pulses bilaterally. No peripheral clubbing, cyanosis or edema. No unilateral leg swelling. NEUROLOGIC: Alert and oriented. Moving all four extremities without any difficulty. Normal speech. Steady gait. SKIN: Normal color. Warm and dry. No rashes or lesions. Results 24 hrs Laboratory Tests Test 10/10/18 04:15 POC Beta HCG, Qualitative NEGATIVE Current Medications Medications Dose Sig/Vamshi Start Time Status Last (Trade) Ordered Route PRN Stop Time Admin Dose Reason Admin Ibuprofen 600 mg ONCE ONCE 10/10/18 DC 10/10/18 (Motrin) PO 03:30 03:32 10/10/18 03:31 Procedures/MDM ED COURSE: The patient was stable throughout ED course. I kept the patient and/or family informed of laboratory and diagnostic imaging results throughout the ED course. MEDICATIONS GIVEN: Ibuprofen Patient tolerated medication well with no adverse reactions. Patient reported improvement in pain. MEDICAL DECISION MAKING: This is a 28-year-old female presents ER for concerns of right-sided hip pain and lower back pain after fall injury 1 week ago. Lateral signs were reviewed. Patient was afebrile. Patient denied any saddle anesthesia, urinary incontinence, bowel incontinence, night pain or recent trauma. X-ray imaging of the lumbar spine, sacrum/coccyx, right hip were obtained. Xray imaging was negative for fracture or dislocation. See formal reports. At this time, patient's presentation is most consistent with right hip pain and back pain with sciatica. Differential diagnoses include but was not limited to hip d islocation, septic joint, cauda equine syndrome, spinal fractures, epidural abscess, spinal metastases, osteomyelitis, aortic dissection, ruptured or leaking AA, DJD, muscle spasm, pyelonephritis or nephrolithiasis. PRESCRIPTIONS: Ibuprofen Baclofen Patient advised not to take baclofen when driving or operating any machinery. Patient understood and agreed with plan. DISCHARGE: At this time, patient is stable for discharge and outpatient management. RICE therapy and ROM exercises were advised to avoid stiffness. I have instructed the patient to follow-up with his/her primary care physician in 1-2 days. I have discussed with the patient the possibility of needing to see an powered bridge specialist for further workup and imaging if the pain persists. I have i nstructed the patient to promptly return to the ER for any new or worsening symptoms including increased pain, swelling, warmth, urinary incontinence, stool incontinence, weakness or numbness. The patient and/or family expressed understanding of and agreement with this plan. All questions were answered. Home care instructions were provided. Disclaimer: Inadvertent spelling and grammatical errors are likely due to EHR/dictation software use and do not reflect on the overall quality of patient care. Also, please note that the electronic time recorded on this note does not necessarily reflect the actual time of the patient encounter. Departure Diagnosis: Primary Impression: Back pain Back pain location: back pain in unspecified location Chronicity: acute Back pain laterality: right Qualified Codes: M54.9 - Dorsalgia, unspecified Additional Impression: Hip pain Laterality: right Qualified Codes: M25.551 - Pain in right hip Condition: Fair Patient Instructions: Back Pain W/ Sciatica Referrals: [facility] YOU HAVE RECEIVED A MEDICAL SCREENING EXAM AND THE RESULTS INDICATE THAT YOU DO NOT HAVE A CONDITION THAT REQUIRES URGENT TREATMENT IN THE EMERGENCY DEPARTMENT. FURTHER EVALUATION AND TREATMENT OF YOUR CONDITION CAN WAIT UNTIL YOU ARE SEEN IN YOUR DOCTORS OFFICE WITHIN THE NEXT 1-2 DAYS. IT IS YOUR RESPONSIBILITY TO MAKE AN APPOINTMENT FOR FOLOW-UP CARE. IF YOU HAVE A PRIMARY DOCTOR --you should call your primary doctor and schedule an appointment IF YOU DO NOT HAVE A PRIMARY DOCTOR YOU CAN CALL OUR PHYSICIAN REFERRAL HOTLINE AT IF YOU CAN NOT AFFORD TO SEE A PHYSICIAN YOU CAN CHOSE FROM THE FOLLOWING [facility] [address] [facility]. [facility] [address] [facility] [address] [facility] [address] [facility] [address] [facility]. [facility]. [address] [facility]. [facility] YOU HAVE RECEIVED A MEDICAL SCREENING EXAM AND THE RESULTS INDICATE THAT YOU DO NOT HAVE A CONDITION THAT REQUIRES URGENT TREATMENT IN THE EMERGENCY DEPARTMENT. FURTHER EVALUATION AND TREATMENT OF YOUR CONDITION CAN WAIT UNTIL YOU ARE SEEN IN YOUR DOCTORS OFFICE WITHIN THE NEXT 1-2 DAYS. IT IS YOUR RESPONSIBILITY TO MAKE AN APPOINTMENT FOR FOLOW-UP CARE. IF YOU HAVE A PRIMARY DOCTOR --you should call your primary doctor and schedule and appointment IF YOU DO NOT HAVE A PRIMARY DOCTOR YOU CAN CALL OUR PHYSICIAN REFERRAL HOTLINE AT . IF YOU CAN NOT AFFORD TO SEE A PHYSICIAN YOU CAN CHOSE FROM THE FOLLOWING [facility] INSTITUTIONS: [facility] [address] [place] [address] [facility] [address] [place] [address] [facility] + [facility] [address] [place] [address] [facility] URGENT CARE/SPECIALTIES Additional Instructions: Call your primary care doctor TOMORROW for an appointment during the next 1-2 days.See the doctor sooner or return here if your condition worsens before your appointment time. KAMILLA DOYLE PA-C Oct 10, 2018 04:24
[2018-10-10 05:34] VITALS: BP 116/68; PULSE 69; RESP 18
== END 2018-10-10 05:35 | disposition home or self-care (01) ==
LOC: FTE 03:03
DX: M54.9 Dorsalgia, unspecified (principal); M25.551 Pain in right hip; R10.2 Pelvic and perineal pain
CPT/HCPCS: 72100; 72170; 72220; 73510; 81025; Z7502; Z7610; 73502